=== PATIENT | female | born 1965 | race Caucasian/White ===

== ENCOUNTER → 2018-04-13 08:59 | Outpatient (CLI) | payer OTHER, SELFPAY ==
[2018-04-13 10:22] LABS: Add Manual Diff / Slide Review NO; Eosinophils Percent Auto 1.8 % (2-4); Hematocrit 40.3 % (36-46); Hemoglobin 13.2 g/dL (12.0-16.0); Lymphocytes Percent Auto 34.9 % (25-40); Mean Corpuscular HGB Conc 32.9 % (30-36); Mean Corpuscular Hemoglobin 27.8 PG (26-34); Mean Corpuscular Volume 84.5 fL (80-100); Neutrophils Absolute Auto 4100 /uL (3000-5900); Neutrophils Percent Auto 55.3 % (50-75); Platelet Count 276 X10^3/uL (150-400); Red Blood Cell Count 4.77 X10^6/uL (4.0-5.2); Red Cell Distribution Width 14.8 % (11.6-14.8); White Blood Cell Count 7.4 X10^3/uL (4.5-11.0)
[2018-04-13 10:41] LABS: Alanine Aminotransferase 22 IU/L (9-52); Albumin 4.4 g/dL (3.5-5.0); Albumin Globulin Ratio 1.4 (1.0-2.8); Alkaline Phosphatase 80 U/L (38-126); Aspartate Aminotransferase 21 IU/L (14-36); BUN Creatinine Ratio 27.1 (6-22); Bilirubin Total 0.4 mg/dL (0.2-1.3); Blood Urea Nitrogen 19 mg/dL (7-17); Carbon Dioxide 30 mmol/L (22-32); Chloride 101 mmol/L (98-107); Cholesterol 231 mg/dL (140-199); Estimated Glomerular Filt Rate > 60.0 mL/min (>60); Globulin 3.1 g/dL (1.7-4.1); Glucose 91 mg/dL (70-100); HDL Cholesterol 48 mg/dL (40-60); HEMOLYSIS < 15 (0-50); LDL Cholesterol Calculated 165 mg/dL (<100); Sodium 141 mmol/L (137-145); Total Protein 7.5 g/dL (6.3-8.2); Triglycerides 89 mg/dL (35-150)
[2018-04-13 10:45] LABS: Appearance Urine UA SL CLOUDY; Bilirubin Urine UA NEGATIVE (NEGATIVE); Glucose Urine UA NEGATIVE (Normal); Ketones Urine UA NEGATIVE (NEGATIVE); Leukocyte Esterase Urine UA 1+ (NEGATIVE); Nitrite Urine UA Negative (Negative); Occult Blood Urine UA 3+ (Negative); Protein Urine UA NEGATIVE (Negative); Specific Gravity Urine UA 1.025 (1.000-1.035); Urobilinogen Urine UA 0.2 E.U./dL (0.2)
[2018-04-13 10:47] LABS: Color Urine UA Yellow
[2018-04-13 10:53] LABS: Bacteria Urine Few (2-10); Culture Indicated Urine Specimen Cultured; RBC Urine 1-5/HPF (0-5/HPF); Squamous Epithelial Cell Urine 1-5 /HPF; WBC Urine 0-1/HPF (0-5/HPF)
[2018-04-13 11:11] LABS: TSH w/ Reflex to FT4 2.12 uIU/mL (0.47-4.68)
== END ==
PROVIDERS: PCP Registered Nurse; Visit Provider Nurse Practitioner Family
DX: Z01.419 Encounter for gynecological examination (general) (routine) without abnormal findings (principal)
CPT/HCPCS: 36415; 80053; 80061; 81003; 81015; 84443; 85025; 87086

== ENCOUNTER → 2018-04-30 12:54 | Outpatient (CLI) | payer OTHER, SELFPAY ==
--- NOTE | 2018-04-30 | DI.MG.S_ITS ---
BILATERAL DIGITAL SCREENING MAMMOGRAM 3D/2D WITH CAD: 04/30/2018 CLINICAL: Routine screening. Comparison is made to exams dated: 05/13/2015 mammogram - [facility], 01/05/2017 mammogram - [facility], and 01/26/2013 mammogram - [facility]. There are scattered fibroglandular elements in both breasts. Current study was also evaluated with a Computer Aided Detection (CAD) system. No significant masses, calcifications, or other findings are seen in either breast. There has been no significant interval change. IMPRESSION: NEGATIVE There is no mammographic evidence of malignancy. A 1 year screening mammogram is recommended. This exam was interpreted at Station ID: [id number]. NOTE: For mammograms, a report in lay terms will be sent to the patient. Approximately 15% of breast malignancies will not be visualized mammographically. In the management of a palpable breast mass, a negative mammogram must not discourage biopsy of a clinically suspicious lesion. Electronically Signed By: Kyrie morton/mesha:04/30/2018 21:07:56 letter sent: Normal Exam ACR BI-RADS Category 1: Negative 3341F
== END ==
PROVIDERS: PCP Registered Nurse; Visit Provider Family Medicine
DX: Z12.31 Encounter for screening mammogram for malignant neoplasm of breast (principal)
CPT/HCPCS: 77063; 77067

== ENCOUNTER → 2018-10-27 14:36 | Outpatient (CLI) | payer OTHER, SELFPAY ==
[2018-10-27 15:20] LABS: Cholesterol 146 mg/dL (140-199); HDL Cholesterol 53 mg/dL (40-60); LDL Cholesterol Calculated 66 mg/dL (<100); Triglycerides 135 mg/dL (35-150)
== END ==
PROVIDERS: PCP Registered Nurse; Visit Provider Registered Nurse
DX: E78.5 Hyperlipidemia, unspecified (principal)
CPT/HCPCS: 36415; 80061

== ENCOUNTER 2020-03-22 14:44 | Emergency (ER) | payer OTHER, SELFPAY ==
[2020-03-22 14:50] VITALS: BP 176/83; PULSE 96; RESP 16; TEMP 37.2; O2SAT 98
--- NOTE | 2020-03-22 15:02 | DI.RAD.S_ITS ---
PROCEDURE: XR WRIST RT MIN 3V INDICATIONS: glf,outstretched hand TECHNIQUE: A total of 4 views of the wrist were acquired. COMPARISON: [facility], , WRIST MINIMUM 3 VIEWS RIGHT, 05/22/2016, 15:57. FINDINGS: Bones: No fractures or dislocations. No suspicious bony lesions. Scaphoid view: The scaphoid visualized appears normal Soft tissues: No suspicious soft tissue calcifications. IMPRESSION: No acute trauma found. If fine usual symptoms persist follow-up by obtaining delayed plain films may allow detection of currently hidden fracture. Dictated by: Parth Dalal M.D. on 03/22/2020 at 15:22 Approved by: Parth Dalal M.D. on 03/22/2020 at 15:25
--- NOTE | 2020-03-22 15:37 | ED_ITS ---
HPI - General Adult General Chief complaint: Extremity Injury, Upper Stated complaint: fell on right hand Time Seen by Provider: 03/22/20 15:16 Source: patient Mode of arrival: Ambulatory Limitations: no limitations History of Present Illness HPI narrative: 54-year-old female here for evaluation of right wrist injury. Patient states that she fell backwards on an outstretched hand after slipping at home. No other injuries reported from the event. She placed ice over the area. Noticed some swelling on the back of her right hand and pain with flexion and extension. No prior injuries. Related Data Home Medications Medication Instructions Recorded Confirmed loratadine 10 mg tablet 10 mg PO DAILY 10/27/18 10/27/18 Previous Rx's Medication Instructions Recorded fluticasone propionate 50 2 spray INTRANASAL QDAY #16 gm 10/27/18 mcg/actuation nasal spray,suspension rosuvastatin 20 mg tablet 20 mg PO DAILY #90 tab 11/09/18 Allergies Allergy/AdvReac Type Severity Reaction Status Date / Time fexofenadine [From [facility]] Allergy Mild migraine Verified 03/22/20 14:55 Review of Systems Constitutional Constitutional: Denies frequent falls and Denies headache(s) ENT Ears, Nose, Mouth, and Throat: Denies headache(s) Cardiovascular Cardiovascular: Denies chest pain and Denies dyspnea Respiratory Respiratory: Denies dyspnea Musculoskeletal Musculoskeletal: Denies tingling Comments: Right wrist pain Integumentary/Breasts Comments: Bruising to the back of the right wrist Neurologic Neurologic: Denies frequent falls, Denies headache(s) and Denies tingling Hematologic/Lymphatic Hematologic/Lymphatic: Denies easy bleeding and Denies easy bruising Patient History Medical History Chicken pox (Resolved) Chronic back pain (Chronic) Hayfever (Chronic) Migraines (Chronic) Sinus headache (Chronic) Surgical History Anesthesia (Resolved) Status post delivery (Resolved 1990) Status post delivery (Resolved 1993) Family History Father Age: 84 High cholesterol Mother Age: 79 Hypertension Grandfather Diabetes mellitus Dementia Grandmother Lung cancer Grandfather MVA (motor vehicle accident) Grandmother Rheumatoid arthritis Brother No problems noted. Social History Smoking Status: Never smoker alcohol intake: current substance use type: does not use Smoking Status: Never smoker alcohol intake frequency: a few times a month Substance Use Type: does not use Exam Initial Vital Signs Initial Vital Signs: Vital Signs Temperature 99 F 03/22/20 14:50 Pulse Rate 96 H 03/22/20 14:50 Respiratory Rate 16 03/22/20 14:50 Blood Pressure 176/83 H 03/22/20 14:50 Pulse Oximetry 98 03/22/20 14:50 Const General: cooperative and comfortable Limitations: mental status not altered Cardio Pulses: radial pulses present on the right Skin Other: Slight bruising radial aspect dorsum of the right hand Neuro Speech: speech normal Motor: muscle tone normal throughout Sensory Exam: no sensory deficits noted Extrem Other: Right shoulder right elbow unremarkable. Right forearm unremarkable. Te nderness to palpation along the distal radius dorsum of the right wrist. No snuffbox tenderness. No tenderness with axial loading of the thumb. Right fingers unremarkable Psych Appearance: grossly normal and well kempt Course Orders Ordered: ED Orders 03/22/20 15:02 XR wrist RT min 3V Stat Vital Signs Vital signs: Vital Signs - 8 hr 03/22/20 14:50 Temperature 99 F Pulse Rate 96 H Respiratory Rate 16 Blood Pressure 176/83 H Pulse Oximetry 98 Medical Decision Making Imaging Data Extremity x-ray #1: Radiologist's Impression: [address] [address] XRay Report Signed Patient: Triston Carver [facility]#: [id number] : 1965Acct:[id number] Age/Sex: 54 / FDate of Service: 03/22/20 Loc: ED Accession Number: [id number] Procedure: XR wrist RT min 3V Ordering Provider: Azam Owens D.O. PROCEDURE: XR WRIST RT MIN 3V INDICATIONS: glf,outstretched hand TECHNIQUE: A total of 4 views of the wrist were acquired. COMPARISON: [facility], WRIST MINIMUM 3 VIEWS RIGHT, 05/22/2016, 15:57. FINDINGS: Bones: No fractures or dislocations. No suspicious bony lesions. Scaphoid view: The scaphoid visualized appears normal Soft tissues: No suspicious soft tissue calcifications. IMPRESSION: No acute trauma found. If fine usual symptoms persist follow-up by obtaining delayed plain films may allow detection of currently hidden fracture. Dictated by: Parth Dalal M.D. on 03/22/2020 at 15:22 Approved by: Parth Dalal M.D. on 03/22/2020 at 15:25 [facility] Narrative Medical decision making narrative: No fractures noted on the x-ray. Patient is neurovascularly intact. No tenderness over the snuffbox. Discussed conservative treatment to include rest and ice and elevation. She is given return precautions and follow-up instructions. She expressed understanding and agreement. Discharge Plan Departure Patient Disposition: Home Clinical Impression: Sprain of wrist, right Qualifiers: Encounter type: initial encounter Qualified Code(s): S63.501A - Unspecified sprain of right wrist, initial encounter Discharge Date/Time: 03/22/20 15:44 Instructions: DI for Wrist Sprain, How To Perform RICE (Rest, Ice, Compress, Elevate), How to Apply an Elastic Wrap on Wrist Activity Restrictions/Additional Instructions: There were no fractures on the x-ray. Use the Rich bandage as needed like we discussed. Also keep your wrist elevated and use the ice like we discussed. Return to the emergency department for any new or worsening symptoms Prescriptions: No Action fluticasone propionate 50 mcg/actuation spray,suspension 2 spray Intranasal QDAY Qty: 16 RF: 3 rosuvastatin 20 mg tablet 20 mg PO DAILY Qty: 90 RF: 3 loratadine [Claritin] 10 mg tablet 10 mg PO DAILY RF: 0 Referrals: Candace Garcia ARNP [Primary Care Provider] -
== END 2020-03-22 15:44 | disposition home or self-care (01) ==
PROVIDERS: Emergency Provider Emergency Medicine; PCP Internal Medicine
DX: S63.501A Unspecified sprain of right wrist, initial encounter (principal); W01.0XXA Fall on same level from slipping, tripping and stumbling without subsequent striking against object, initial encounter
CPT/HCPCS: 73110; 99283

== ENCOUNTER → 2020-05-31 11:23 | Outpatient (CLI) | payer OTHER, SELFPAY ==
--- NOTE | 2020-05-31 | DI.RAD.S_ITS ---
PROCEDURE: XR HAND RT MIN 3V INDICATIONS: PAIN AFTER FALL TECHNIQUE: 3 views of the hand acquired. COMPARISON: [facility], CR, XR WRIST RT MIN 3V, 03/22/2020, 14:00. FINDINGS: Bones: No fractures or dislocations. Carpal bones are normally aligned. No suspicious bony lesions. Soft tissues: No suspicious soft tissue calcifications. IMPRESSION: No acute osseous abnormality. If the symptoms persist with conservative management, consider cross sectional imaging such as CT or MRI for further assessment. Dictated by: Reggie Bains M.D. on 05/31/2020 at 13:25 Approved by: Reggie Bains M.D. on 05/31/2020 at 13:26
--- NOTE | 2020-05-31 | DI.RAD.S_ITS ---
PROCEDURE: XR WRIST RT MIN 3V INDICATIONS: wrist pain after fall TECHNIQUE: 5 views of the wrist were acquired. COMPARISON: [facility], CR, XR WRIST RT MIN 3V, 03/22/2020, 14:00. FINDINGS: Bones: No acute fractures or dislocations. No suspicious bony lesions. Scaphoid view: The scaphoid is intact. Soft tissues: No suspicious soft tissue calcifications. IMPRESSION: No acute osseous abnormality. If the symptoms persist with conservative management, consider cross sectional imaging such as CT or MRI for further assessment. Dictated by: Reggie Bains M.D. on 05/31/2020 at 13:24 Approved by: Reggie Bains M.D. on 05/31/2020 at 13:25
== END ==
PROVIDERS: PCP Internal Medicine; Referring Provider Internal Medicine; Visit Provider Internal Medicine
DX: M25.531 Pain in right wrist (principal)
CPT/HCPCS: 73110; 73130

== ENCOUNTER → 2021-01-23 16:42 | Outpatient (CLI) | payer OTHER, SELFPAY ==
--- NOTE | 2021-01-23 16:44 | DI.MG.S_ITS ---
BILATERAL DIGITAL SCREENING MAMMOGRAM 3D/2D WITH CAD: 01/23/2021 CLINICAL: Routine screening. Comparison is made to exams dated: 04/30/2018 mammogram, 01/05/2017 mammogram - [facility], and 05/13/2015 mammogram - [facility]. There are scattered fibroglandular elements in both breasts. Current study was also evaluated with a Computer Aided Detection (CAD) system. There are benign calcifications in both breasts. No significant masses, calcifications, or other findings are seen in either breast. There has been no significant interval change. IMPRESSION: BENIGN There is no mammographic evidence of malignancy. A 1 year screening mammogram is recommended. This exam was interpreted at Station ID: [id number]. NOTE: For mammograms, a report in lay terms will be sent to the patient. Approximately 15% of breast malignancies will not be visualized mammographically. In the management of a palpable breast mass, a negative mammogram must not discourage biopsy of a clinically suspicious lesion. Electronically Signed By: Cornelio Pastor acr/mesha:01/23/2021 17:48:33 letter sent: Normal Exam ACR BI-RADS Category 2: Benign Finding(s) 3342F
== END ==
PROVIDERS: PCP Internal Medicine; Referring Provider Internal Medicine; Visit Provider Internal Medicine
DX: Z12.31 Encounter for screening mammogram for malignant neoplasm of breast (principal)
CPT/HCPCS: 77063; 77067

== ENCOUNTER → 2021-06-10 14:03 | Outpatient (CLI) | payer OTHER, SELFPAY ==
--- NOTE | 2021-06-10 | DI.RAD.S_ITS ---
PROCEDURE: XR CERVICAL SPINE 2V OR 3V INDICATIONS: Cervicalgia TECHNIQUE: 3 view(s) of the cervical spine were acquired. COMPARISON: None. FINDINGS: Bones: No fractures or dislocations to the C7 level. Mild disc space narrowing and endplate osteophyte formation at C4-C5, C5-C6, and C6-C7, indicating degenerative disc disease. Mild facet hypertrophy throughout the mid and lower cervical spine. The lateral masses of C1 appear intact on the odontoid view. No suspicious bony lesions. Soft tissues: No prevertebral soft tissue swelling. IMPRESSION: Multilevel degenerative disc and facet disease. No acute fracture. No osseous lesion. If symptoms and/or clinical suspicion for pathology persist, further assessment with repeat, or advanced imaging (e.g., CT, MRI, or bone scan) may be helpful for further assessment. Dictated by: Makenna Bishop M.D. on 06/10/2021 at 15:13 Approved by: Makenna Bishop M.D. on 06/10/2021 at 16:20
--- NOTE | 2021-06-10 | DI.RAD.S_ITS ---
PROCEDURE: XR SACROILIAC JOINT MIN 3V INDICATIONS: PAIN TECHNIQUE: 3 views of the sacroiliac joints were acquired. COMPARISON: None. FINDINGS: Bones: No bony erosions or ankylosis. No suspicious bony lesions. No fractures. Bilateral sacroiliac sclerosis and spurring. No definite joint space narrowing. Soft tissues: Overlying bowel gas pattern is normal. No suspicious soft tissue densities. IMPRESSION: Bilateral sacroiliac spurring and sclerosis. No definite joint space narrowing. If the patient's pain or other symptoms persist, consider further evaluation with MRI Dictated by: Luke Horne M.D. on 06/10/2021 at 15:19 Approved by: Luke Horne M.D. on 06/10/2021 at 15:21
--- NOTE | 2021-06-10 | DI.RAD.S_ITS ---
PROCEDURE: XR PELVIS 1-2V INDICATIONS: Cervicalgia TECHNIQUE: 1 view(s) of the pelvis acquired. COMPARISON: [facility], CR, XR SACROILIAC JOINT MIN 3V, 06/10/2021, 0:00. FINDINGS: Bones: No fractures or dislocations. Mild hip DJD. SI joints appear symmetric. No suspicious bony lesions. Soft tissues: Visualized bowel gas pattern is normal. No suspicious soft tissue calcifications. IMPRESSION: Mild bilateral hip DJD. Dictated by: Sachin Lemus M.D. on 06/10/2021 at 16:02 Approved by: Sachin Lemus M.D. on 06/10/2021 at 16:03
== END ==
PROVIDERS: PCP Internal Medicine; Referring Provider Internal Medicine; Visit Provider Internal Medicine
DX: M50.321 Other cervical disc degeneration at C4-C5 level (principal); M47.812 Spondylosis without myelopathy or radiculopathy, cervical region; M53.3 Sacrococcygeal disorders, not elsewhere classified; M16.0 Bilateral primary osteoarthritis of hip
CPT/HCPCS: 72040; 72170; 72202

== ENCOUNTER → 2022-01-14 16:09 | Outpatient (CLI) | payer OTHER, SELFPAY ==
--- NOTE | 2022-01-14 | DI.MRI.S_ITS ---
PROCEDURE: MR CERVICAL SPINE WO CON INDICATIONS: Cervicalgia TECHNIQUE: Noncontrast sagittal T1 spin echo and T2 fast spin echo, sagittal STIR, foraminal oblique sagittal T2 fast spin echo, and axial gradient echo or T2 fast spin echo through the cervical spine. COMPARISON: [facility], CR, XR CERVICAL SPINE 2V OR 3V, 06/10/2021, 14:03. [facility], CR, XR PELVIS 1-2V, 06/10/2021, 14:03. [facility], MR, C-SPINE WITHOUT CONTRAST, 07/20/2017, 16:19. FINDINGS: Image quality: Excellent. Alignment and Curvature: There is normal bony alignment. Bone Marrow: Marrow demonstrates normal overall signal. Spinal Cord: Visualized spinal cord has normal size and signal. No cerebellar tonsillar herniation. Paraspinous Soft Tissues: No paravertebral masses. Prevertebral soft tissues are normal in thickness. C2-C3: Normal appearance. C3-C4: The disc height and disc signal are relatively well preserved. Mild to moderate disc osteophyte complex is seen. Mild to moderate facet hypertrophy is seen. There is moderate bilateral neural foraminal narrowing seen. No significant central canal narrowing is seen. These imaging findings have progressed compared to the prior study. C4-C5: The disc height is well-preserved. Loss of disc signal is seen at this level. Mild to moderate disc osteophyte complex is seen, with a mild central/left disc osteophyte protrusion. Moderate facet joint hypertrophy is seen. Moderate bilateral neural foraminal narrowing is seen. Mild to moderate central canal narrowing is seen. Compared to 2017, these degenerative changes have progressed. C5-C6: Moderate loss of disc height is seen. Loss of disc signal is seen. Moderate disc osteophyte complex is seen, with a central disc osteophyte protrusion. Moderate facet joint hypertrophy is seen. There is at least moderate bilateral neural foraminal narrowing seen. Mild to moderate central canal narrowing is seen at this level. These degenerative changes are slightly progressed compared to 2017. C6-C7: Moderate loss of disc height is seen. Loss of disc signal is seen. Moderate disc osteophyte complex is seen, with a mild central disc osteophyte protrusion. At least moderate facet hypertrophy is seen. There is at least moderate left-sided and moderate right-sided neural foraminal narrowing. Mild central canal narrowing is seen. These degenerative changes are mildly progressed compared to the prior MRI. C7-T1: No significant abnormality is seen. IMPRESSION: Multiple levels of cervical spine degenerative change are seen, which are overall mildly progressed compared to 2017. Dictated by: George Roberts M.D. on 01/14/2022 at 16:25 Approved by: George Roberts M.D. on 01/14/2022 at 16:30
== END ==
PROVIDERS: PCP Internal Medicine; Referring Provider Internal Medicine; Visit Provider Internal Medicine
DX: M47.812 Spondylosis without myelopathy or radiculopathy, cervical region (principal); M54.2 Cervicalgia
CPT/HCPCS: 72141

== ENCOUNTER → 2022-03-24 08:21 | Outpatient (CLI) | payer OTHER, SELFPAY ==
--- NOTE | 2022-03-24 | DI.MG.S_ITS ---
BILATERAL DIGITAL SCREENING MAMMOGRAM 3D/2D WITH CAD: 03/24/2022 CLINICAL: Routine screening. Comparison is made to exams dated: 01/23/2021 mammogram and 04/30/2018 mammogram - [facility]. There are scattered fibroglandular elements in both breasts. Current study was also evaluated with a Computer Aided Detection (CAD) system. There are benign calcifications in both breasts. No significant masses, calcifications, or other findings are seen in either breast. There has been no significant interval change. IMPRESSION: BENIGN There is no mammographic evidence of malignancy. A 1 year screening mammogram is recommended. Based on the Tyrer Cuzick model (a risk assessment model) the patient's lifetime risk is 6.0% and her 10 year risk is 2.0%. According to the ACR, ACS, and NCCN guidelines, an annual breast MRI exam along with mammogram is recommended if the patient's lifetime risk is 20% or greater. This exam was interpreted at Station ID: [id number]. NOTE: For mammograms, a report in lay terms will be sent to the patient. Approximately 15% of breast malignancies will not be visualized mammographically. In the management of a palpable breast mass, a negative mammogram must not discourage biopsy of a clinically suspicious lesion. Electronically Signed By: Sachin diop/mesha:03/24/2022 09:35:18 letter sent: Normal Exam ACR BI-RADS Category 2: Benign Finding(s) 3342F
== END ==
PROVIDERS: PCP Internal Medicine; Referring Provider Internal Medicine; Visit Provider Internal Medicine
DX: Z12.31 Encounter for screening mammogram for malignant neoplasm of breast (principal)
CPT/HCPCS: 77063; 77067

== ENCOUNTER → 2023-03-25 08:30 | Outpatient (CLI) | payer OTHER, SELFPAY ==
--- NOTE | 2023-03-25 | DI.MG.S_ITS ---
BILATERAL DIGITAL SCREENING MAMMOGRAM 3D/2D WITH CAD: 03/25/2023 CLINICAL: Routine screening. Comparison is made to exams dated: 03/24/2022 mammogram, 01/23/2021 mammogram, and 04/30/2018 mammogram - [facility]. There are scattered areas of fibroglandular density in both breasts (category b / 25%-50% glandular tissue). Current study was also evaluated with a Computer Aided Detection (CAD) system. There are benign calcifications in both breasts. No significant masses, calcifications, or other findings are seen in either breast. There has been no significant interval change. IMPRESSION: BENIGN There is no mammographic evidence of malignancy. A 1 year screening mammogram is recommended. Based on the Tyrer Cuzick model (a risk assessment model) the patient's lifetime risk is 5.9% and her 10 year risk is 2.1%. According to the ACR, ACS, and NCCN guidelines, an annual breast MRI exam along with mammogram is recommended if the patient's lifetime risk is 20% or greater. This exam was interpreted at Station ID: [id number]. NOTE: For mammograms, a report in lay terms will be sent to the patient. Approximately 15% of breast malignancies will not be visualized mammographically. In the management of a palpable breast mass, a negative mammogram must not discourage biopsy of a clinically suspicious lesion. Electronically Signed By: Valarie kaminski/mesha:03/25/2023 10:40:32 letter sent: Normal Exam ACR BI-RADS Category 2: Benign Finding(s) 3342F
== END ==
PROVIDERS: PCP Internal Medicine; Referring Provider Internal Medicine; Visit Provider Internal Medicine
DX: Z12.31 Encounter for screening mammogram for malignant neoplasm of breast (principal)
CPT/HCPCS: 77063; 77067

== ENCOUNTER → 2024-01-15 13:55 | Outpatient (CLI) | payer OTHER, SELFPAY ==
--- NOTE | 2024-01-15 13:56 | DI.RAD.S_ITS ---
PROCEDURE: XR CHEST 2V INDICATIONS: Pleurodynia TECHNIQUE: 2 views of the chest were acquired. COMPARISON: None. FINDINGS: Surgical changes and devices: None. Lungs and pleura: Lungs are clear. No pleural effusions or pneumothorax. Mediastinum: Mediastinal contours are normal. Heart size is normal. Bones and chest wall: No suspicious bony abnormalities. Soft tissues appear unremarkable. IMPRESSION: No acute cardiopulmonary abnormality is seen. Dictated by: Parth Dalal M.D. on 01/15/2024 at 14:26 Approved by: Parth Dalal M.D. on 01/15/2024 at 14:26
== END ==
LOC: RAD 13:56
PROVIDERS: PCP Internal Medicine; Referring Provider Registered Nurse; Visit Provider Registered Nurse
DX: R07.81 Pleurodynia (principal)
CPT/HCPCS: 71046

== ENCOUNTER 2024-04-07 11:35 | Emergency (ER) | payer OTHER, SELFPAY ==
[2024-04-07 11:36] VITALS: BP 146/82; PULSE 100; RESP 15; TEMP 36.8; O2SAT 97; BMI 33.3
[2024-04-07 12:16] LABS: Add Manual Diff / Slide Review NO; Basophils Absolute Auto 100 /uL (0-100); Basophils Percent Auto 0.5 % (0-2); Eosinophils Absolute Auto 200 /uL (0-450); Eosinophils Percent Auto 1.8 % (2-4); Hematocrit 39.3 % (36-46); Hemoglobin 12.7 g/dL (12.0-16.0); Lymphocytes Absolute Auto 1900 /uL (1100-4500); Lymphocytes Percent Auto 15.1 % (25-40); Mean Corpuscular HGB Conc 32.3 % (30-36); Mean Corpuscular Hemoglobin 27.2 PG (26-34); Mean Corpuscular Volume 84.2 fL (80-100); Monocytes Absolute Auto 1000 /uL (0-900); Monocytes Percent Auto 8.2 % (3-14); Neutrophils Absolute Auto 9400 /uL (1500-7000); Neutrophils Percent Auto 74.4 % (50-75); Platelet Count 275 X10^3/uL (150-400); Red Blood Cell Count 4.67 X10^6/uL (4.0-5.2); Red Cell Distribution Width 14.4 % (11.6-14.8); White Blood Cell Count 12.6 X10^3/uL (4.5-11.0)
[2024-04-07 12:31] LABS: Alanine Aminotransferase 16 IU/L (<35); Albumin 4.4 g/dL (3.5-5.0); Albumin Globulin Ratio 1.5 (1.0-2.8); Alkaline Phosphatase 119 U/L (38-126); Aspartate Aminotransferase 20 IU/L (14-36); BUN Creatinine Ratio 18.7 (6-22); Bilirubin Total 0.7 mg/dL (0.2-1.3); Blood Urea Nitrogen 14 mg/dL (7-17); Calcium 9.3 mg/dL (8.4-10.2); Carbon Dioxide 25 mmol/L (22-32); Chloride 103 mmol/L (98-107); Estimated Glomerular Filt Rate > 60 mL/min (>60); Glucose 104 mg/dL (70-100); HEMOLYSIS < 15 (0-50); Lipase 44 U/L (23-300); Potassium 4.2 mmol/L (3.4-5.1); Sodium 136 mmol/L (137-145); Total Protein 7.4 g/dL (6.3-8.2)
--- NOTE | 2024-04-07 12:38 | ED.ABDPAIN ---
HPI - Abdominal Pain General Chief Complaint: Abdominal Pain Stated Complaint: abd pain lower L Time Seen by Provider: 04/07/24 12:28 Source: patient Mode of arrival: Ambulatory History of Present Illness HPI narrative: 58-year-old female, never smoker, presents to the emergency department with left lower quadrant abdominal pain x6 days. Patient endorses that the pain is so severe that most time she can not stand up straight. Patient was initially evaluated at the walk-in clinic, explained the limitations of diagnostic imaging, and sent to the emergency department for evaluation. Patient does have intermittent issues with bowel movements and has been using magnesium as needed. Last bowel movement was this morning and was normal. Surgical history of 2 C sections and is postmenopausal. Patient did have a colonoscopy at age 49 and was told it was normal. Patient denies any vaginal itching, bleeding or discharge. Related Data Home Medications Medication Instructions Recorded Confirmed loratadine 10 mg tablet (Claritin) 10 mg PO DAILY 10/27/18 10/27/18 Previous Rx's Medication Instructions Recorded fluticasone propionate 50 2 spray intranasal QDAY ##16 10/27/18 mcg/actuation nasal spray,suspension rosuvastatin 20 mg tablet 20 mg PO DAILY #90 tabs 11/09/18 amoxicillin 875 mg-potassium 1 tab PO Q12H Diverticulitis 14 04/07/24 clavulanate 125 mg tablet days #28 tabs Allergies Allergy/AdvReac Type Severity Reaction Status Date / Time fexofenadine [From CELINA] Allergy Mild migraine Verified 04/07/24 11:38 Review of Systems Review of Systems Narrative: Narrative: See HPI. GENERAL: Denies chills, fatigue, fever, sweats. HEENT: Denies sinus pain, ear pain, sore throat, difficulty swallowing, dizziness. RESPIRATORY: Denies dyspnea, cough, wheezing, sputum. CARDIOVASCULAR: Denies chest pain, palpitations, edema. GASTROINTESTINAL: Denies nausea, vomiting, diarrhea, constipation. Endorses abdominal pain. : Denies dysuria, frequency, incontinence, hematuria, urinary retention, flank pain. MSK: Denies weakness, joint pain, or bony pain. SKIN: Denies rash, skin lesions, or pruritis. NEUROLOGIC: Denies weakness, dizziness, headache, numbness, confusion. PSYCHIATRIC: No concerning psychosocial issues. Patient History Medical History (Updated 04/07/24 @ 13:54 by ALAN Yung) Migraines Chicken pox Chronic back pain Hayfever Sinus headache Surgical History Anesthesia Status post delivery (1993) Status post delivery (1990) Family History Father Age: 88 High cholesterol Mother Age: 83 Hypertension Grandfather Diabetes mellitus Dementia Grandmother Lung cancer Grandfather MVA (motor vehicle accident) Grandmother Rheumatoid arthritis Brother No problems noted. Social History Smoking Status: Never smoker alcohol intake: current substance use type: does not use Smoking Status: Never smoker alcohol intake frequency: 0-2 drinks per day Substance Use Type: does not use Exam Narrative Exam Narrative: Exam Narrative: GENERAL: This is a well-nourished, well-developed patient, in no acute distress. HEAD: Atraumatic. Normocephalic. EYES: Pupils equal round and reactive. Extraocular motions intact. No scleral icterus, injection or drainage. ENT: Nose without bleeding, purulent drainage. Airway patent. NECK: Trachea midline. No JVD or lymphadenopathy. Nontender. CARDIOVASCULAR: Regular rate and rhythm without murmurs, peripheral pulses intact, cap refill <2 sec. RESPIRATORY: Breath sounds equal and clear bilaterally. No wheezes, rales, or rhonchi. No cough. No increased respiratory effort. No accessory muscle use. GASTROINTESTINAL: Abdomen soft, tenderness left upper and lower quadrant, nondistended without guarding or rebound. No suprapubic pain. MSK: Moves all extremities. Normal range of motion, no clubbing or edema. Neurovascularly intact. NEURO: A&O x 3. SKIN: Warm, dry, no rashes or lesions noted. Initial Vital Signs Initial Vital Signs: Vital Signs Temperature 98.2 F 04/07/24 11:36 Pulse Rate 100 H 04/07/24 11:36 Respiratory Rate 15 04/07/24 11:36 Blood Pressure 146/82 H 04/07/24 11:36 Pulse Oximetry 97 04/07/24 11:36 Oxygen Delivery Method Room Air 04/07/24 11:36 Reviewed Course Orders Ordered: ED Orders 04/07/24 11:41 EKG-12 Lead Stat 08/01/24 11:45 Complete Blood Count AUTO DIFF Stat Comprehensive Metabolic Panel Stat Lactate (Lactic Acid) Stat Lipase Stat Procalcitonin Stat 04/07/24 11:56 Urine Microscopic Stat 04/07/24 12:38 CT abdomen pelvis w con Stat 04/07/24 13:17 Blood Culture Stat Discontinued Medications Ondansetron HCl (Ondansetron 4 Mg/2 Ml Inj) 4 mg IV NOW PRN PRN Reason: Nausea And Vomiting Ondansetron HCl (Ondansetron 4 Mg Odt) 4 mg PO NOW PRN PRN Reason: Nausea And Vomiting Vital Signs Vital signs: Vital Signs - 8 hr 04/07/24 11:36 04/07/24 13:59 Temperature 98.2 F Pulse Rate 100 H 97 H Respiratory Rate 15 14 Blood Pressure 146/82 H 122/79 Pulse Oximetry 97 97 Oxygen Delivery Method Room Air Room Air MDM - Abdominal Pain Differential Diagnosis Differential diagnosis: Likely abdominal pain, calculus of kidney, small bowel obstruction and other (Diverticulitis) Lab Data 04/07/24 11:45 04/07/24 11:45 Labs: Lab Results 04/07/24 04/07/24 Range/Units 11:45 11:56 WBC 12.6 H (4.5-11.0) X10^3/uL RBC 4.67 (4.0-5.2) X10^6/uL Hgb 12.7 (12.0-16.0) g/dL Hct 39.3 (36-46) % MCV 84.2 (80-100) fL MCH 27.2 (26-34) PG MCHC 32.3 (30-36) % RDW 14.4 (11.6-14.8) % Plt Count 275 (150-400) X10^3/uL Neut % (Auto) 74.4 (50-75) % Lymph % (Auto) 15.1 L (25-40) % [place]ancey % (Auto) 8.2 (3-14) % Eos % (Auto) 1.8 L (2-4) % Baso % (Auto) 0.5 (0-2) % Neut # (Auto) 9400 H (2246-8132) /uL Lymph # (Auto) 1900 (7427-3525) /uL Yancey # (Auto) 1000 H (0-900) /uL Eos # (Auto) 200 (0-450) /uL Baso # (Auto) 100 (0-100) /uL Sodium 136 L (137-145) mmol/L Potassium 4.2 (3.4-5.1) mmol/L Chloride 103 (98-107) mmol/L Carbon Dioxide 25 (22-32) mmol/L BUN 14 (7-17) mg/dL Creatinine 0.75 (0.52-1.04) mg/dL Estimated GFR > 60 (>60) mL/min BUN/Creatinine Ratio 18.7 (6-22) Glucose 104 H (70-100) mg/dL Lactate 0.9 (0.7-2.1) mmol/L Calcium 9.3 (8.4-10.2) mg/dL Total Bilirubin 0.7 (0.2-1.3) mg/dL AST 20 (14-36) IU/L ALT 16 (<35) IU/L Alkaline Phosphatase 119 (38-126) U/L Total Protein 7.4 (6.3-8.2) g/dL Albumin 4.4 (3.5-5.0) g/dL Globulin 3.0 (1.7-4.1) g/dL Albumin/Globulin Ratio 1.5 (1.0-2.8) Lipase 44 (23-300) U/L Procalcitonin 0.049 (<0.5) ng/mL Urine RBC 0-1/hpf (0-5/HPF) Urine WBC 0-1/hpf (0-5/HPF) Ur Squamous Epith Cells 5-10 /hpf H (0-5/HPF) Urine Bacteria Occasional (0-1) (None) Urine Mucus 1+ H (Negative) Ur Culture Indicated? Cult not indicated Vol Urine Centrifuged 10ml (spun) Point of care testing: Point of Care Testing Test Results Negative Urine Dip Bedside Urine Glucose Negative Bedside Urine Bilirubin - Negative Bedside Urine Ketone +/- 5 Urine Specific [place] 1.020 Bedside Urine Occult Blood ++ Bedside Urine pH 6.0 Bedside Urine Protein - Negative Bedside Urine Urobilinogen - Negative Bedside Urine Nitrite - Negative Bedside Urine Leukocytes - Negative Esterase Imaging Data CT scan - abdomen/pelvis: Radiologist's Impression: [address] [address] [address] Scan Report Signed Patient: Triston Carver#: [id number] : 1965 Acct:[id number] Age/Sex: 58 / F Date of Service: 04/07/24 Loc: ED Accession Number: [id number] Procedure: CT abdomen pelvis w con Ordering Provider: Azam Hernandez PROCEDURE: CT ABDOMEN PELVIS W CON INDICATIONS: LLQ abdominal pain TECHNIQUE: After the administration of intravenous contrast, axial sections acquired from the lung bases to the pubic symphysis. Coronal and sagittal reformats were performed. For radiation dose reduction, the following was used: automated exposure control, adjustment of mA and/or kV according to patient size. COMPARISON: None. FINDINGS: Image quality: Diagnostic. Lower Chest: No significant findings. ABDOMEN: Liver: No solid mass. Multiple simple hepatic cysts. Focus of heterogeneous low attenuation is present in the lateral aspect of the right hepatic lobe measuring 1.3 cm on series 2, image 24 with Hounsfield units in consistent with a simple cyst.. Gallbladder: No radiopaque gallstones or wall thickening. Biliary ducts: No biliary dilation. Pancreas: No ductal dilation. Spleen: Size is within normal limits. Adrenal Glands: No adrenal nodules. Kidneys and Ureters: No hydronephrosis. No solid mass. No complex renal cystic lesion which requires follow up. Stomach and Bowel: Colonic diverticula is present. There is significant thickening and inflammatory change within the distal descending colon. No free air. No abscess. Peritoneum: No abnormal intraperitoneal fluid. No free air. Ventral Wall: No significant ventral hernia. Abdominal Nodes: No retroperitoneal or mesenteric adenopathy by size criteria. Vessels: Aorta and inferior vena cava are normal in size. PELVIS: Pelvic Organs: Unremarkable. Bladder: No bladder wall thickening, accounting for underdistention. Pelvic Nodes: No enlarged lymph nodes. Miscellaneous: No inguinal hernias are seen. Bones: No aggressive osseous abnormality. IMPRESSION: Sigmoid colitis secondary to diverticulitis. No abscess. Multiple simple hepatic cysts. Low-attenuation focus within the lateral hepatic lobe with Hounsfield units greater than expected for a simple cyst. This could represent complex cyst or potentially hemangioma. Dictated by: Geeta Harris M.D. on 04/07/2024 at 13:29 Approved by: Geeta Harris M.D. on 04/07/2024 at 13:39 MDM Narrative Medical decision making narrative: 58-year-old female with left lower quadrant abdominal pain. Assessment was concerning due to the amount pain patient is experiencing. CT revealed diverticulitis with incidental findings of hepatic cysts. Labs were non concerning (WBC mildly elevated to 12.6). Discussed case with Dr. Jeff. Will treat outpatient with oral antibiotics. Discussed plan of care and return precautions with patient, who verbalized understanding and was agreeable to course of action Discharge Plan Departure Patient Disposition: Home Clinical Impression: Diverticulitis Instructions: DI for Diverticulitis Activity Restrictions/Additional Instructions: *You have been diagnosed with diverticulitis. I am sorry that you are experiencing this pain. The CT revealed that you have diverticulitis. Incidental findings on the CT scan revealed some cysts on your liver, that should probably be followed up with your family doctor. For any worsening symptoms, please return to the emergency room immediately. Otherwise follow up with your family doctor as needed. *What to do: *Please continue to take your regular medications as directed. [x ] New medication prescriptions sent to your pharmacy: [[facility]] [ ] New medication written as a paper prescription [ ] No new medications given *Please follow up with your primary care provider in 2-3 days, call for an appointment. Let them know you were seen in the Emergency Department and that we ask that you be seen in follow up. We will electronically transmit a record of today's note if your PCP is in our system *If you do not have a primary care provider please contact the [facility] Resource line at [phone]. They will ask some questions about your medical history and help get you set up with a doctor in the community. ? Return to ER if you should have any new, worsening or concerning symptoms, such as worsening pain, severe headache, confusion, chest pain, difficulty breathing, fever greater than 101 F, shaking chills, persistent vomiting to the point that you cannot drink fluids, or other new or worsening symptoms. Prescriptions: New amoxicillin-pot clavulanate 875-125 mg tablet 1 tab PO Q12H 14 Days Qty: 28 0RF No Action fluticasone propionate 50 mcg/actuation spray,suspension 2 spray Intranasal QDAY Qty: 16 3RF rosuvastatin 20 mg tablet 20 mg PO DAILY Qty: 90 3RF Rx Instructions: Take one tablet by mouth every evening with meal. loratadine [Claritin] 10 mg tablet 10 mg PO DAILY Referrals: Candace Garcia ARNP [Primary Care Provider] - Stand Alone Forms: Patient Portal/API
[2024-04-07 12:42] LABS: Bacteria Urine Occasional (0-1); RBC Urine 0-1/HPF (0-5/HPF); Squamous Epithelial Cell Urine 5-10 /HPF (0-5/HPF); Urine Volume 10mL (spun); WBC Urine 0-1/HPF (0-5/HPF)
[2024-04-07 12:43] LABS: Culture Indicated Urine Cult Not Indicated; Mucus Urine 1+ (Negative)
[2024-04-07 13:41] LABS: Lactate (Lactic Acid) 0.9 mmol/L (0.7-2.1)
[2024-04-07 13:59] VITALS: BP 122/79; PULSE 97; RESP 14; O2SAT 97
[2024-04-07 13:59] LABS: Procalcitonin 0.049 ng/mL (<0.5)
== END 2024-04-07 14:01 | disposition home or self-care (01) ==
PROVIDERS: Emergency Medicine; Emergency Provider Registered Nurse; PCP Internal Medicine
DX: K57.92 Diverticulitis of intestine, part unspecified, without perforation or abscess without bleeding (principal)
CPT/HCPCS: 36415; 74177; 80053; 81003; 81015; 81025; 83605; 83690; 84145; 85025; 87040; 99284

== ENCOUNTER → 2024-04-14 15:25 | Outpatient (CLI) | payer OTHER, SELFPAY ==
--- NOTE | 2024-04-14 15:26 | DI.MG.S_ITS ---
BILATERAL DIGITAL SCREENING MAMMOGRAM 3D/2D WITH CAD: 04/14/2024 CLINICAL: Routine screening. Comparison is made to exams dated: 03/25/2023 mammogram, 03/24/2022 mammogram, and 01/23/2021 mammogram - [facility]. There are scattered areas of fibroglandular density in both breasts (category b / 25%-50% glandular tissue). Current study was also evaluated with a Computer Aided Detection (CAD) system. There are benign calcifications in both breasts. No significant masses, calcifications, or other findings are seen in either breast. There has been no significant interval change. IMPRESSION: BENIGN There is no mammographic evidence of malignancy. A 1 year screening mammogram is recommended. Based on the Tyrer Cuzick model (a risk assessment model) the patient's lifetime risk is 5.8% and her 10 year risk is 2.2%. According to the ACR, ACS, and NCCN guidelines, an annual breast MRI exam along with mammogram is recommended if the patient's lifetime risk is 20% or greater. This exam was interpreted at Station ID: [id number]. NOTE: For mammograms, a report in lay terms will be sent to the patient. Approximately 15% of breast malignancies will not be visualized mammographically. In the management of a palpable breast mass, a negative mammogram must not discourage biopsy of a clinically suspicious lesion. Electronically Signed By: Reggie hampton/mesha:04/15/2024 11:53:52 letter sent: Normal Exam ACR BI-RADS Category 2: Benign Finding(s) 3342F
== END ==
PROVIDERS: PCP Internal Medicine; Referring Provider Internal Medicine; Visit Provider Internal Medicine
DX: Z12.31 Encounter for screening mammogram for malignant neoplasm of breast (principal); R92.323 Mammographic fibroglandular density, bilateral breasts
CPT/HCPCS: 77063; 77067

== ENCOUNTER → 2024-04-29 07:45 | Outpatient (CLI) | payer OTHER, SELFPAY ==
--- NOTE | 2024-04-29 | DI.US.S_ITS ---
PROCEDURE: US ABDOMEN LIMITED INDICATIONS: CYST OF LIVER TECHNIQUE: Real-time focused scanning was performed of the abdomen, with image documentation. COMPARISON: [facility], CT, CT ABDOMEN PELVIS W CON, 04/07/2024, 12:44. FINDINGS: Liver measures 13.6 cm with multiple simple cysts. In addition, there is a hyperechoic focus measuring 1.9 cm without increased vascularity in the right lower lobe. This is not well visualized on CT exam. Mild shadowing is present overlying the gallbladder which may represent overlying gas or wall echo shadow. No gross wall thickening. Common bile duct measures 8.8 mm. IMPRESSION: Multiple simple hepatic cysts. Focus of increased echogenicity is present within the liver poorly characterized. This could represent focal fatty infiltration or potentially hemangioma. Follow-up with ultrasound on a in 3 months may be obtained. No definitive gallbladder pathology. However, it is poorly visualized secondary to what appears to be overlying bowel gas. Dictated by: Geeta Harris M.D. on 04/29/2024 at 11:47 Approved by: Geeta Harris M.D. on 04/29/2024 at 11:52
== END ==
PROVIDERS: PCP Internal Medicine; Referring Provider Internal Medicine; Visit Provider Internal Medicine
DX: K76.89 Other specified diseases of liver (principal)
CPT/HCPCS: 76705

== ENCOUNTER → 2024-12-15 08:19 | Outpatient (CLI) | payer OTHER, SELFPAY ==
--- NOTE | 2024-12-15 08:19 | DI.US.S_ITS ---
PROCEDURE: US ABDOMEN LIMITED INDICATIONS: Liver Cyst TECHNIQUE: Real-time focused scanning was performed of the abdomen, with image documentation. COMPARISON: [facility], CT, CT ABDOMEN PELVIS W CON, 04/07/2024, 12:44. [facility], US, US ABDOMEN LIMITED, 04/29/2024, 8:08. FINDINGS: The liver is normal in size and demonstrates no suspicious lesions. Stable simple appearing cysts are seen, with the largest measuring up to 4.8 cm. There is an echogenic, nonvascular focus seen within the medial inferior liver measuring up to 14 mm, previously measuring up to 18 mm, likely representing a hemangioma. The gallbladder is stone filled. The gallbladder wall is not thickened, measuring 3 mm or less. No specific pericholecystic fluid is seen. The sonographic Krueger sign is negative. The common bile duct measures 9 mm. No stones can be seen within the common bile duct. No significant pancreatic abnormality is seen on these images. The visualized right kidney is unremarkable, without hydronephrosis. IMPRESSION: A presumed liver hemangioma has not increased in size compared to the prior. Simple appearing liver cysts are also seen. The gallbladder is stone filled, without additional sonographic signs of cholecystitis. The common bile duct is dilated at 9 mm. This is similar to the prior examination. - If clinically appropriate, an MRCP could be considered for further evaluation (assuming that there is no contraindication to MRI). Dictated by: George Roberts M.D. on 12/15/2024 at 12:38 Approved by: George Roberts M.D. on 12/15/2024 at 12:40
== END ==
LOC: US 08:19
PROVIDERS: PCP Registered Nurse; Referring Provider Registered Nurse; Visit Provider Registered Nurse
DX: K76.89 Other specified diseases of liver (principal); K80.20 Calculus of gallbladder without cholecystitis without obstruction; K83.8 Other specified diseases of biliary tract
CPT/HCPCS: 76705

== ENCOUNTER 2025-03-23 09:15 | Day surgery (SDC) | payer OTHER, SELFPAY ==
[2025-03-23 09:42] VITALS: BP 132/74; PULSE 67; RESP 16; TEMP 37; O2SAT 98
[2025-03-23] MEDS: LACTATED RINGERS 1,000 ML 42 ML IV (09:52)
--- NOTE | 2025-03-23 10:15 | PM.HP.IH.1 ---
History of Present Illness History of Present Illness Date Patient Seen: 03/23/25 Time Patient Seen: 10:15 Chief complaint: SDC Narrative: Triston is a 59-year-old woman who is here for a screening colonoscopy. Her last was about 10 years ago and was normal. No family history of colon cancer. [facility] Medical History (Updated 03/23/25 @ 10:15 by Harshad Stacy MD) Migraines Chicken pox Chronic back pain Hayfever Sinus headache Surgical History Anesthesia Status post delivery (1993) Status post delivery (1990) Family History Father Age: 89 High cholesterol Mother Age: 84 Hypertension Grandfather Diabetes mellitus Dementia Grandmother Lung cancer Grandfather MVA (motor vehicle accident) Grandmother Rheumatoid arthritis Brother No problems noted. Social History Smoking Status: Never smoker alcohol intake: current substance use type: does not use Meds Home Medications and Allergies Home Medications ?Medication ?Instructions ?Recorded ?Confirmed ?Type amoxicillin 875 mg-potassium 1 tab PO BID 12/10/24 03/23/25 History clavulanate 125 mg tablet Allergies Allergy/AdvReac Type Severity Reaction Status Date / Time fexofenadine (From CELINA) Allergy Mild migraine Verified 03/23/25 09:38 amoxicillin AdvReac Intermediate Vomiting Verified 03/23/25 09:38 Exam Vital Signs (past 8 hours): - 03/23/25 09:42 Temperature 98.6 F Pulse Rate 67 Respiratory Rate 16 Blood Pressure 132/74 Pulse Oximetry 98 Oxygen Delivery Method Room Air Oxygen Delivery Method Room Air Const General: healthy appearing Assessment & Plan Assessment and plan (1) Colon cancer screening: Status: Acute Plan Colonoscopy Time-Based Coding :: [TOTAL MINUTES] spent with patient and on the chart (including review of chart, obtaining history, exam, reviewing outside data, placing orders, documenting exam and treatment plan, and counseling patient) on [DATE]. 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
--- NOTE | 2025-03-23 10:53 | PM.OP.COLON ---
Operative Date/Time/Diagnoses Date of procedure: 03/23/25 Time of procedure: 10:53 Pre-op diagnosis: Colon cancer screening Post-op diagnosis: same Procedure & Clinicians Study performed: Colonoscopy Same procedure(s) as scheduled: Yes Surgeon: Harshad Stacy Anesthesia Type: MAC +/- Procedure Notes Procedure in detail: Surgeon: Harshad Stacy MD Anesthesia: Armida Rodriguez CRNA Procedure: The patient was brought to the endoscopy suite, placed in left lateral decubitus position. The patient was connected to monitoring devices. A time-out was performed. Sedation was administered. Once the patient was adequately sedated, a digital rectal exam was performed and was normal. The scope was then inserted and advanced to the cecum where the appendiceal orifice was identified and photographed. The scope was then slowly withdrawn over greater than 6 minutes. The mucosa was thoroughly inspected. No polyps or other abnormalities were identified. The scope was retroflexed in the rectum. The scope was straightened and removed. The patient was awakened and brought to recovery. Scope withdrawal time: 8 minutes Sedation time: 18 minutes EBL: 0 Findings: Normal colon Post-procedure Recommendations: Colonoscopy in 10 years Disposition: PACU
[2025-03-23 10:54] VITALS: BP 117/61; PULSE 63; RESP 16; TEMP 36.1; O2SAT 99
[2025-03-23 10:59] VITALS: BP 110/77; PULSE 71; RESP 16; O2SAT 95
[2025-03-23 11:03] VITALS: BP 111/66; PULSE 64; O2SAT 98
[2025-03-23 11:04] VITALS: BP 133/68; PULSE 63; RESP 16; TEMP 36.1; O2SAT 100
== END 2025-03-23 11:16 | disposition home or self-care (01) ==
PROVIDERS: PCP Registered Nurse; Referring Provider Surgery; Visit Provider Surgery
PROC: 0DJD8ZZ Inspection of Lower Intestinal Tract, Via Natural or Artificial Opening Endoscopic (ICD-10-PCS; CPT 45378; principal; 2025-03-23 10:30)
DX: Z12.11 Encounter for screening for malignant neoplasm of colon (principal)
CPT/HCPCS: 45378; J2704